=== PATIENT | female | born 1990 | race Caucasian/White ===

== ENCOUNTER → 2019-03-03 | Outpatient (CLI) | payer BC | LOC: COL.RAD 12:41 | DX: Q60.0 Renal agenesis, unilateral (principal); Q62.11 Congenital occlusion of ureteropelvic junction; Z90.5 Acquired absence of kidney | CPT/HCPCS: A9562; J1940 ==

== ENCOUNTER → 2019-04-02 | Outpatient (CLI) | payer BC | LOC: COL.RAD 10:22 | DX: Z13.0 Encounter for screening for diseases of the blood and blood-forming organs and certain disorders involving the immune mechanism (principal); N13.0 Hydronephrosis with ureteropelvic junction obstruction; Z87.440 Personal history of urinary (tract) infections | CPT/HCPCS: Q9967 ==

== ENCOUNTER 2019-06-20 10:12 | Inpatient (IN) | payer BC ==
[~2019-06-20] VITALS: Ht 165.1 cm; Wt 85.0 kg
[2020-01-20] MEDS ORDERED: EFFEXOR-XR150 MG PO (10:27)
[2020-01-20] MEDS ORDERED: TIROSINT100 MC1 PO (10:27)
[2020-03-02] VITALS (13 sets, daily range): BP systolic 111–122; BP diastolic 65–78; PULSE 93–116; TEMP 97.9–98.9
[2020-03-02] MEDS ORDERED: SYNTHROID0.1 MG/TAB PO (07:14)
--- NOTE | 2020-03-02 07:20 | NUR ---
TO RM 7 PER OWN WILL STEADY GAIT. ALERT ORIENTED X3, VERBALIZED UNDERSTANDING AND SIGNED CONSENT.
--- NOTE | 2020-03-02 07:28 | NUR ---
T0 RM AT 0634- CALL LIGHT IN REACH AT BEDSIDE
--- NOTE | 2020-03-02 11:20 | NUR ---
Patient up to room 343 from OR. Drowsy but arouses to voice, asking for or father. Lap sites x 6 with edges well approximated. Hodges to dependent drainage. Postop VSS. Postop fluids infusing per orders. Assessment complete. Denies pain or further needs at this time. Will continue to monitor.
--- NOTE | 2020-03-02 18:33 | NUR ---
Patient has done well throughout the day. Has been up ambulating in hernandez with stand by assist. Hodges maintined to dependent drainage with clear yellow urine. Tolerating diet without complications. Fluids continue infusing per orders. Denies further needs at this time. Will report off to drill operator pneumatic .
--- NOTE | 2020-03-02 19:56 | NUR ---
Pt is currently lying in bed. Pt had complaints of pain. I asked her if the previous pain medications helped. She stated that it helpledd little but she's still hurting. Pt was given pain medication at this tie. Pt is tolerating fluids well and was able to tolerate eating apple sauce without nausea. Pt has he call light within reach.
--- NOTE | 2020-03-02 22:35 | NUR ---
Pt is currently lying in bed. Pt has rested well throughout the night. Pt did have some complaints of pain earlier in the shift but after getting pain medication patient stated that her pain is much better. Pt has had a very good urine output. Pt urine is yellow and clear. Pt has been tolerating fluids well all night and has been able to eat without any nausea. Pt has her call light within reach. Pt was also able to ambulate tonight as well.
[2020-03-03 04:00] VITALS: BP 106/68; PULSE 89; TEMP 98.2
[2020-03-03 06:45] LABS: HEMATOCRIT 37.4 % (37.0-47.0)
[2020-03-03 07:00] LABS: CALCIUM 8.5 mg/dL (8.4-10.2); CREATININE, serum 0.58 (0.52-1.25)
[2020-03-03 07:59] VITALS: BP 128/68; PULSE 114; TEMP 98.3
--- NOTE | 2020-03-03 08:30 | NUR ---
Patient alert and oriented, answers questions appropriately. See assessment. Abdomen soft, non tender, non distended. Bowel sounds active x4 quads. +Flatus. Abdominal lap sites with edges well approximated, no redness or drainage noted. +Flatus. Hodges catheter in place and draining clear yellow urine, no blood or clots noted. ERAS protocol reviewed. No c/o at this time.
--- NOTE | 2020-03-03 08:54 | NUR ---
IVY Sarmiento here to see patient.
--- NOTE | 2020-03-03 09:21 | NUR ---
Hodges catheter removed at this time.
--- NOTE | 2020-03-03 09:35 | NUR ---
Topography Technician met with patient to discuss discharge planning. Patient lives in [place] with her , Maxim (ph#[phone]) and their four year old daughter, Claudia. Patient sees IVY Diaz for primary care and obtains medications from [facility] in [place] on . Patient states they will be a little short on money until Maxim gets paid on Sunday, but normally they have no difficulties affording medications. Patient does not use DME and reports independence with ADLS. Patient is interested in completing DPOA-HC form. MILLIE assisted patient in completing the form and patient chose to designate her , Maxim. Patient did not want to designate an alternate at this time. MILLIE and Tiffany Marble Polisher Hand provided witness signature. MILLIE provided original and copies to patient then placed a copy in patient's chart. Patient plans to return home at discharge with her providing transportation. Patient to discharge today and reports no concerns about returning home.
--- NOTE | 2020-03-03 11:14 | NUR ---
First visit from the air valve mechanic. No needs right now.
[2020-03-03 11:33] VITALS: BP 121/77; PULSE 64; TEMP 98.2
--- NOTE | 2020-03-03 13:59 | NUR ---
Discharge instructions reviewed with patient, verbalized understanding. Discharged via wheelchair to auto/home with spouse at 1355.
== END 2020-03-03 13:55 | disposition home or self-care (01) | DRG 661 ==
LOC: SDCO 07-17 14:00 → EDSTATUS 08-21 14:30 → SDCO 08-21 14:30 → INPTSU 03-02 06:26 → SURG 03-02 08:30
PROVIDERS: ADMIT Urology
PROC: 0TT14ZZ Resection of Left Kidney, Percutaneous Endoscopic Approach (ICD-10-PCS; principal; 2020-03-02 08:30)
DX: N26.1 Atrophy of kidney (terminal) (principal); E03.9 Hypothyroidism, unspecified; Z90.710 Acquired absence of both cervix and uterus; Z87.440 Personal history of urinary (tract) infections
CPT/HCPCS: A4314; A9284; C1726; C1758; C1769; J0690; J1100; J1885; J2250; J2370; J2405; J2704; J2795; J7050; J7120

== ENCOUNTER 2019-10-07 08:00 | Emergency (ER) | payer BC ==
[~2019-10-07] VITALS: Ht 165.1 cm; Wt 79.5 kg
[2019-10-07 08:06] VITALS: BP 110/72; TEMP 97.3
[2019-10-07 09:20] VITALS: PULSE 87
== END 2019-10-07 09:15 | disposition home or self-care (01) ==
LOC: COL.ER 08:00
DX: R33.9 Retention of urine, unspecified (principal); Z85.41 Personal history of malignant neoplasm of cervix uteri; Z90.710 Acquired absence of both cervix and uterus; Z98.890 Other specified postprocedural states
CPT/HCPCS: 31860; A4314

== ENCOUNTER 2020-01-20 09:15 | Day surgery (SDC) | payer BC ==
[~2020-01-20] VITALS: Ht 165.1 cm; Wt 83.1 kg
[2020-01-20] MEDS ORDERED: TIROSINT100 MC1 PO (10:27)
[2020-01-20] MEDS ORDERED: EFFEXOR100 MG PO (10:27)
[2020-01-20 10:28] VITALS: BP 121/76; PULSE 102; TEMP 97.7
[2020-01-20 13:02] VITALS: TEMP 99
[2020-01-20 13:20] VITALS: BP 121/77; PULSE 111
--- NOTE | 2020-01-20 13:20 | NUR ---
Patient returns to room 1 per cart from PACU accompanied by Nova MURO and is awake and alert. Temp 98.0. IV fluids infusing. Spouse in room. Siderails up x2 and call light in reach. Taking sips of apple juice. Denies pain or nausea.
[2020-01-20 13:35] VITALS: BP 111/66; PULSE 112
--- NOTE | 2020-01-20 13:35 | NUR ---
Eating toast and drinking juice. Assisted up to the bathroom. Voids and returns to room. Denies pain or nausea.
[2020-01-20 13:50] VITALS: BP 105/65; PULSE 116
--- NOTE | 2020-01-20 13:50 | NUR ---
Tolerated toast and juice. IV discontinued and site is free of redness. Room air sats 100%. Patient dresses self.
--- NOTE | 2020-01-20 14:00 | NUR ---
Given patient dismissal instructions and voices understanding of these.
--- NOTE | 2020-01-20 14:07 | NUR ---
Patient dismissed to home driven by spouse and taken to the front door per wheelchair and assisted into vehicle with dismissal instructions in hand.
== END 2020-01-20 14:07 | disposition home or self-care (01) ==
LOC: SDCO 09:15
DX: N39.0 Urinary tract infection, site not specified (principal); N13.1 Hydronephrosis with ureteral stricture, not elsewhere classified; N26.1 Atrophy of kidney (terminal); R33.9 Retention of urine, unspecified; F32.9 Major depressive disorder, single episode, unspecified; Z96.0 Presence of urogenital implants; Z79.899 Other long term (current) drug therapy; Z20.828 Contact with and (suspected) exposure to other viral communicable diseases
CPT/HCPCS: C1769; J0690; J1885; J2405; J2704; J3010; J7060; J7120; Q9967

== ENCOUNTER 2020-02-08 09:06 | Observation (INO) | payer BC ==
[~2020-02-08] VITALS: Ht 165.1 cm; Wt 83.4 kg
[~2020-02-08 09:06] MED LIST: EFFEXOR-XR150 MG PO; TIROSINT100 MC1 PO
[2020-02-08 10:18] VITALS: BP 123/74; PULSE 93; TEMP 98.2
[2020-02-08 10:57] LABS: BASO # 0.1 (0.0-0.2); BASO % 0.8 % (0.0-2.0); EOS # 0.2 (0.0-0.7); EOS % 2.8 % (0-4.0); GRAN # 3.7 (1.4-6.5); GRAN % 52.2 % (42.2-75.2); HEMATOCRIT 37.3 % (37.0-47.0); HEMOGLOBIN 11.8 g/dl (12.5-16.0); LYMPH # 2.6 (1.2-3.4); LYMPH % 35.9 % (20.0-51.0); MEAN CELL VOLUME 84 fl (80.0-100.0); MEAN CORPUSCULAR HEMOGLOBIN 27 pg (27.0-31.0); MEAN CORPUSCULAR HGB CONC 32 g/dl (33.0-37.0); MEAN PLATELET VOLUME 9.4 fl (7.4-10.4); MONO # 0.6 (0.1-0.6); PLATELET COUNT 292 K/mm3 (130-400); RED BLOOD COUNT 4.46 M/mm3 (4.10-5.30); REDCELL DISTRIBUTION WIDTH-CV 13.7 % (11.5-14.5)
--- NOTE | 2020-02-08 11:03 | NUR ---
Dr Perez here to see patient.
[2020-02-08 11:06] LABS: CALCIUM 8.8 mg/dL (8.4-10.2); CREATININE, serum 0.64 (0.52-1.25); POTASSIUM 3.9 mmol/L (3.4-5.0)
[2020-02-08 12:37] LABS: PH 7 (5-8); URINE APPEARANCE Cloudy; URINE BACTERIA Rare /hpf; URINE BILIRUBIN Negative (NEGATIVE); URINE BLOOD Negative (NEGATIVE); URINE COLOR Yellow; URINE GLUCOSE Negative (NEGATIVE); URINE KETONE Negative (NEGATIVE); URINE LEUKOCYTE ESTERASE 2+ (NEGATIVE); URINE NITRATE Negative (NEGATIVE); URINE PROTEIN(semi-quant) Negative (NEGATIVE); URINE RBC 0-2 /hpf; URINE WBC >50 /hpf
[2020-02-08 12:46] LABS: COLLECTION METHOD CLEAN CATCH
[2020-02-08 17:03] VITALS: BP 112/66; PULSE 89; TEMP 98.8
[2020-02-08 19:59] VITALS: BP 113/68; PULSE 77; TEMP 98.9
--- NOTE | 2020-02-08 22:30 | NUR ---
Pt assessment completed and charted, alert, and orientated. Meds provided as per MAR, as well as anti-emetic on pt request. Pt is settled on her bed, call light is on reach, bed alaram is on. No further needs at this time.
[2020-02-09 00:19] VITALS: BP 128/53; PULSE 96; TEMP 98.2
[2020-02-09 04:59] VITALS: BP 118/63; PULSE 75; TEMP 98.1
--- NOTE | 2020-02-09 05:37 | NUR ---
Pt had an uneventful nighy. Pt slept through out the night. No further needs at this time.
[2020-02-09 07:13] VITALS: BP 114/65; PULSE 70; TEMP 97.9
--- NOTE | 2020-02-09 09:10 | NUR ---
Patient is discharging home. Discharge instructions discussed with patient. No questions verbalized. She already has a follow up appointment scheduled. Dr Perez verbalized the office will call in antibiotics for patient. INT discontinued. Rocephen given before discharge. All belongings packed up and sent with patient. Copies of discharge instructions sent with patient. Education about nephrectomy sent with patient as she will be having the surgery soon. Patient walked out with this nurse.
== END 2020-02-09 09:15 | disposition home or self-care (01) ==
LOC: SURG 09:06
PROVIDERS: ADMIT Urology
DX: N12 Tubulo-interstitial nephritis, not specified as acute or chronic (principal); N39.0 Urinary tract infection, site not specified; N13.30 Unspecified hydronephrosis; N26.1 Atrophy of kidney (terminal); E03.9 Hypothyroidism, unspecified; Z87.440 Personal history of urinary (tract) infections; Z96.0 Presence of urogenital implants; Z90.710 Acquired absence of both cervix and uterus; Z79.899 Other long term (current) drug therapy; Z88.8 Allergy status to other drugs, medicaments and biological substances
CPT/HCPCS: G0378; J0696; J2405

== ENCOUNTER → 2020-08-02 | Outpatient (CLI) | payer BC ==
[~2020-08-02] MED LIST changes: +SYNTHROID0.1 MG/TAB PO
== END ==
LOC: COL.RAD 11:37
DX: N28.89 Other specified disorders of kidney and ureter (principal); Z90.5 Acquired absence of kidney; N13.0 Hydronephrosis with ureteropelvic junction obstruction
CPT/HCPCS: A9562; J1940

== ENCOUNTER 2020-11-17 15:47 | Emergency (ER) | payer BC ==
[~2020-11-17] VITALS: Ht 152.4 cm; Wt 86.4 kg
[2020-11-17 15:57] VITALS: TEMP 98.5
[2020-11-17 16:15] LABS: COLLECTION METHOD CLEAN CATCH
[2020-11-17 16:24] LABS: MUCOUS Present /lpf; PH 6 (5-8); URINE APPEARANCE Cloudy; URINE BACTERIA Rare /hpf; URINE BILIRUBIN Negative (NEGATIVE); URINE BLOOD Negative (NEGATIVE); URINE COLOR Yellow; URINE GLUCOSE Negative (NEGATIVE); URINE KETONE Negative (NEGATIVE); URINE LEUKOCYTE ESTERASE 3+ (NEGATIVE); URINE NITRATE Positive (NEGATIVE); URINE PROTEIN(semi-quant) 1+ (NEGATIVE); URINE UROBILINOGEN Negative (NEGATIVE)
[2020-11-17 18:50] LABS: BASO # 0.1 (0.0-0.2); BASO % 0.7 % (0.0-2.0); EOS # 0.2 (0.0-0.7); EOS % 2.3 % (0-4.0); GRAN # 4.4 (1.4-6.5); GRAN % 51.3 % (42.2-75.2); HEMOGLOBIN 13.2 g/dl (12.5-16.0); LYMPH # 3.3 (1.2-3.4); LYMPH % 38.8 % (20.0-51.0); MEAN CELL VOLUME 83 fl (80.0-100.0); MEAN CORPUSCULAR HEMOGLOBIN 26 pg (27.0-31.0); MEAN CORPUSCULAR HGB CONC 31 g/dl (33.0-37.0); MEAN PLATELET VOLUME 9.2 fl (7.4-10.4); MONO # 0.6 (0.1-0.6); MONO % 6.4 % (1.7-9.3); PLATELET COUNT 355 K/mm3 (130-400); RED BLOOD COUNT 5.09 M/mm3 (4.10-5.30)
[2020-11-17 19:08] LABS: ALBUMIN 4.1 gm/dL (3.5-5.0); BILIRUBIN,TOTAL 0.6 mg/dL (0.0-1.0); CALCIUM 9.3 mg/dL (8.4-10.2); CREATININE, serum 0.7 (0.52-1.25); POTASSIUM 3.7 mmol/L (3.4-5.0)
[2020-11-17 20:53] VITALS: BP 126/67; PULSE 88
== END 2020-11-17 20:53 | disposition home or self-care (01) ==
LOC: COL.ER 15:47
PROVIDERS: Nurse Practitioner; Physician Assistant
DX: N39.0 Urinary tract infection, site not specified (principal); Z90.710 Acquired absence of both cervix and uterus; Z87.448 Personal history of other diseases of urinary system
CPT/HCPCS: J0696; J2270; J2405; J7030; Q9967

== ENCOUNTER 2021-10-28 15:24 | Inpatient (IN) | payer BC ==
[~2021-10-28] VITALS: Ht 152.4 cm; Wt 76.6 kg
[2021-10-28 16:22] LABS: COLLECTION METHOD CLEAN CATCH
[2021-10-28 16:33] LABS: HEMATOCRIT 37.8 % (37.0-47.0); HEMOGLOBIN 12.5 g/dl (12.5-16.0); MEAN CELL VOLUME 82 fl (80.0-100.0); MEAN CORPUSCULAR HEMOGLOBIN 27 pg (27-31); MEAN CORPUSCULAR HGB CONC 33 g/dl (33.0-37.0); MEAN PLATELET VOLUME 9.3 fl (7.4-10.4); PLATELET COUNT 209 K/mm3 (130-400); RED BLOOD COUNT 4.59 M/mm3 (4.10-5.30); REDCELL DISTRIBUTION WIDTH-CV 12.9 % (11.5-14.5)
[2021-10-28 16:50] LABS: MUCOUS Present (NOT PRESENT); PH 5 (5-8); SQUAMOUS EPITHELIAL 20-50 /hpf (0-10); URINE APPEARANCE Cloudy (CLEAR/HAZY); URINE BACTERIA Rare /hpf (NONE SEEN); URINE BILIRUBIN Negative (NEGATIVE); URINE BLOOD Negative (NEGATIVE); URINE COLOR Amber (YELLOW); URINE GLUCOSE Negative (NEGATIVE); URINE KETONE 2+ (NEGATIVE); URINE LEUKOCYTE ESTERASE Negative (NEGATIVE); URINE NITRATE Negative (NEGATIVE); URINE PROTEIN(semi-quant) 1+ (NEGATIVE); URINE UROBILINOGEN >=4.0 (NEGATIVE)
[2021-10-28 17:02] LABS: ALBUMIN 3.5 gm/dL (3.5-5.0); BILIRUBIN,TOTAL 1.3 mg/dL (0.2-1.2); CREATININE, serum 0.71 mg/dL (0.57-1.11); POTASSIUM 3.3 mmol/L (3.5-4.5); TOTAL PROTEIN 6.9 gm/dL (6.2-8.1)
[2021-10-28 18:53] LABS: BAND 13 % (0-10); LYMPHOCYTE 16 % (20.0-51.0); METAMYELOCYTE 1 % (0-0); NEUTROPHILS 67 % (42.0-75.2); PLATELET ESTIMATE NORMAL (NORMAL)
[2021-10-28 18:54] LABS: HYPOCHROMIA 1+
[2021-10-28 19:40] LABS: COLLECTION METHOD CLEAN CATCH
[2021-10-28 19:56] LABS: MUCOUS Present (NOT PRESENT); PH 6 (5-8); URINE APPEARANCE Hazy (CLEAR/HAZY); URINE BACTERIA None Seen /hpf (NONE SEEN); URINE BILIRUBIN Negative (NEGATIVE); URINE BLOOD Negative (NEGATIVE); URINE COLOR Yellow (YELLOW); URINE GLUCOSE Negative (NEGATIVE); URINE KETONE 2+ (NEGATIVE); URINE LEUKOCYTE ESTERASE Negative (NEGATIVE); URINE NITRATE Negative (NEGATIVE); URINE PROTEIN(semi-quant) 1+ (NEGATIVE); URINE UROBILINOGEN >=4.0 (NEGATIVE)
[2021-10-28] MEDS ORDERED: VIIBRYD10 MG PO (20:41)
[2021-10-28] MEDS ORDERED: ADIPEX-P37.5 MG PO (20:41)
[2021-10-28 22:41] VITALS: BP 127/86; PULSE 105; TEMP 97.5
--- NOTE | 2021-10-28 23:31 | NUR ---
Admitted to medical floor from ER- right flank pain, nausea, fever, UTI,, states right flank pain3/10 at this time- was just medicated in ER, denies nausea at this time, VENETIE IRA- states left her hearing aides and dentures at home. INt to right AC- pt states very painful and wants it removed-- will start another line. Up to bathroom- steady on feet, voiding cloudy yellow urine.
[2021-10-29] VITALS (8 sets, daily range): BP systolic 105–132; BP diastolic 73–89; PULSE 83–129; TEMP 97.5–101.8
--- NOTE | 2021-10-29 05:10 | NUR ---
Has not had much sleep, Zofran given x1 tonight-- Has had Dilaudid IV x2 for right sided and pain, has voided 550cc dk jodee urine. Did not tolerate the IV potassium per protocol-- Rosy SOARES called and she changed order to IV fluids of NS with 20KCL at 125cc/hr.
[2021-10-29 06:36] LABS: HEMOGLOBIN 10.9 g/dl (12.5-16.0); MEAN CELL VOLUME 85 fl (80.0-100.0); MEAN CORPUSCULAR HEMOGLOBIN 27 pg (27-31); MEAN CORPUSCULAR HGB CONC 32 g/dl (33.0-37.0); MEAN PLATELET VOLUME 9.5 fl (7.4-10.4); PLATELET COUNT 162 K/mm3 (130-400); RED BLOOD COUNT 4.01 M/mm3 (4.10-5.30)
[2021-10-29 06:42] LABS: HEMATOCRIT 33.9 % (37.0-47.0)
[2021-10-29 06:55] LABS: CALCIUM 8.4 mg/dL (8.4-10.2); CREATININE, serum 0.58 mg/dL (0.57-1.11); POTASSIUM 3.4 mmol/L (3.5-4.5)
[2021-10-29 07:29] LABS: BAND 3 % (0-10); LYMPHOCYTE 7 % (20.0-51.0); NEUTROPHILS 78 % (42.0-75.2); PLATELET ESTIMATE NORMAL (NORMAL)
--- NOTE | 2021-10-29 07:30 | NUR ---
Patient c/o pain to right flank/head-rating pain 9/10-described as sharp throbbing. Dilaudid given per dr order. Will reassess.
--- NOTE | 2021-10-29 08:11 | NUR ---
Patient still rating pain 9/10 post dilaudid. Spoke with IVY Winchester and new orders received.
--- NOTE | 2021-10-29 10:15 | NUR ---
PCT reports patient is c/o pain. Patient states she is having right flank and head pain-described as sharp throbbing-rating pain 8/10 on pain scale. Morphine given per dr order. Will reassess
--- NOTE | 2021-10-29 10:23 | NUR ---
SW met with patient to complete intake. Patient provides she lives in [facility] [place] with spouse Maxim Yen [phone]. Patient provides that she does not utilize DME and is independent with ADL's. PCP is Dr. Alexandre and pharmacy is [facility]. Documenation states that spouse is DPOA/HC. Patient plans to return to her home upon DC. SW will continue to follow. DC plan: home
--- NOTE | 2021-10-29 11:26 | NUR ---
Contacted [facility] ER about CT scan results. Will fax to medical floor.
--- NOTE | 2021-10-29 12:37 | NUR ---
Airway Controller stopped by room. Patient requested to rest.
--- NOTE | 2021-10-29 13:29 | NUR ---
IVY Winchester notified of elevated temp with tylenol being given an hour ago. New orders received and initiated.
--- NOTE | 2021-10-29 18:14 | NUR ---
Patient slept most of shift-receiving morphine every two hours for pain. IV fluids continue to infuse @125ml/hr. Did have two episodes of fevers up to 101.8-motrin/tylenol for this. Showered today. Received three doses of potassium per protocol. Also received 500ml bolus. Voiding without difficulty. Currently resting with eyes closed.
--- NOTE | 2021-10-29 19:30 | NUR ---
Initial shift assessment done- states had headache 5/,, and abdominal right flank pain /--will give Morphine IV and Tylenol as ordered, Tele on, IV fludis of NS with 20KCL at 150cc/hr, pt states did eat some supper tonight- states overall is feeling just a little better.
[2021-10-30 03:37] VITALS: BP 121/87; PULSE 88; TEMP 98.1
--- NOTE | 2021-10-30 06:13 | NUR ---
Did get some sleep last night-- VSS, afebrile all night,, did receive Morphine IV x3 during the shift for flank pain , Zofran x1 for nausea and Tylenol/Motrin each once for ALFARO and neck ache. Is tolerating po
[2021-10-30 07:03] LABS: BASO % 0.5 % (0.0-2.0); EOS % 0.5 % (0.0-4.0); GRAN # 3.9 K/mm3 (1.4-6.5); GRAN % 63.9 % (42.2-75.2); HEMOGLOBIN 10.4 g/dl (12.5-16.0); LYMPH # 1.1 K/mm3 (1.2-3.4); LYMPH % 18.6 % (20.0-51.0); MEAN CELL VOLUME 84 fl (80.0-100.0); MEAN CORPUSCULAR HEMOGLOBIN 27 pg (27-31); MEAN CORPUSCULAR HGB CONC 32 g/dl (33.0-37.0); MEAN PLATELET VOLUME 9.9 fl (7.4-10.4); MONO % 15.8 % (1.7-9.3); PLATELET COUNT 156 K/mm3 (130-400); RED BLOOD COUNT 3.86 M/mm3 (4.10-5.30); REDCELL DISTRIBUTION WIDTH-CV 13.3 % (11.5-14.5)
[2021-10-30 07:13] LABS: HEMATOCRIT 32.5 % (37.0-47.0)
[2021-10-30 07:14] LABS: CALCIUM 8.5 mg/dL (8.4-10.2); CREATININE, serum 0.55 mg/dL (0.57-1.11); POTASSIUM 4.1 mmol/L (3.5-4.5)
[2021-10-30 07:16] VITALS: BP 118/81; PULSE 78; TEMP 98
[2021-10-30 07:23] LABS: MAGNESIUM 1.7 mg/dL (1.6-2.6)
[2021-10-30 07:51] LABS: C-REACTIVE PROTEIN 19.32 mg/dL (0.00-0.50)
--- NOTE | 2021-10-30 08:00 | NUR ---
Assessment complete. A&Ox4. Denies pain/nausea/shortness of breath. VS remain stable. Patient states she feels much better compared to yesterday. IV to left forearm with NS with 20KCL@100mls/hr infusing without difficulty. Plan of care discussed for this shift to include meds/pain control/calling for questions/concerns. Verbalizes understanding. Call light in reach. Will monitor.
[2021-10-30 08:57] LABS: TSH w REFLEX 2.286 uIU/mL (0.350-4.940)
[2021-10-30 11:18] VITALS: BP 129/93; PULSE 99; TEMP 97.9
--- NOTE | 2021-10-30 11:45 | NUR ---
Noted to have a new STAT Vanc order. Slow Zosyn currently infusing with approx one hour left. Will hang vanc once Zosyn completes.
--- NOTE | 2021-10-30 11:59 | NUR ---
Vancomycin Initial Dosing Pharmacy Note Ordering provider: MD KIAH Indication/duration: SEPSIS, BACTEREMIA Relevant comorbidities: LEFT NEPHRECTOMY LABS: WBC 6.1, TMAX 101.8, SCR 0.55, CRCL >100 Recommendation: VANCOMYCIN 15 MG/KG Loading dose: 1.5 grams Maintenance dose: 1 gram every 12 hours Trough goal: 15-20 ug/mL. TROUGH 7/5 @ 1130
[2021-10-30 15:21] VITALS: BP 133/94; PULSE 95; TEMP 98.9
--- NOTE | 2021-10-30 15:51 | NUR ---
Called with C/o pain to right flank described as constant throbbing-rating pain 7/10 on pain scale. Morphine given per dr order. Will reassess
--- NOTE | 2021-10-30 18:33 | NUR ---
Patient had an uneventful day. Received morphine x2 for pain. Denied nausea/shortness of breath. Afebrile. IV fluids infusing @100ml/hr. Tolerating diet. Voiding without difficulty. Denies current needs. Call light in reach. Will monitor.
[2021-10-30 19:01] VITALS: BP 129/84; PULSE 109; TEMP 98.7
--- NOTE | 2021-10-30 20:30 | NUR ---
Initial shift assessment done- was just given some Tylenol for headache--states it is somewhat better 06/09,, wants to take a shower tonight- supplies gathered for her,, IV fluids of NS with 20KCL at 100cc/hr. States abd/flank pain is "OK " right now.
[2021-10-30 23:34] VITALS: BP 121/79; PULSE 81; TEMP 98.3
[2021-10-31 03:14] VITALS: BP 131/85; PULSE 72; TEMP 97.9
--- NOTE | 2021-10-31 04:48 | NUR ---
Quiet night- Morphine for right flank pain given just once this shift-- did get Motrin x1 for a headache. Voiding large amounts clear yellow urine.
[2021-10-31 06:30] LABS: BASO # 0.1 K/mm3 (0.0-0.2); BASO % 0.8 % (0.0-2.0); EOS # 0.1 K/mm3 (0.0-0.7); GRAN # 3.2 K/mm3 (1.4-6.5); GRAN % 53.4 % (42.2-75.2); MEAN CELL VOLUME 86 fl (80.0-100.0); MEAN CORPUSCULAR HEMOGLOBIN 27 pg (27-31); MEAN CORPUSCULAR HGB CONC 32 g/dl (33.0-37.0); MEAN PLATELET VOLUME 9.8 fl (7.4-10.4); MONO # 0.7 K/mm3 (0.1-0.6); MONO % 11.5 % (1.7-9.3); PLATELET COUNT 164 K/mm3 (130-400); RED BLOOD COUNT 3.66 M/mm3 (4.10-5.30); REDCELL DISTRIBUTION WIDTH-CV 13.4 % (11.5-14.5)
[2021-10-31 06:32] LABS: CALCIUM 8.7 mg/dL (8.4-10.2); CREATININE, serum 0.56 mg/dL (0.57-1.11); MAGNESIUM 1.7 mg/dL (1.6-2.6); POTASSIUM 3.6 mmol/L (3.5-4.5)
[2021-10-31 06:41] LABS: HEMATOCRIT 31.4 % (37.0-47.0)
[2021-10-31 07:25] VITALS: BP 115/78; PULSE 85; TEMP 98.2
--- NOTE | 2021-10-31 10:00 | NUR ---
Pt doing okay this morning with no complaints. She did have and eat breakfast. Denies any needs or questions, will continue to monitor
[2021-10-31 11:25] VITALS: BP 125/83; PULSE 72; TEMP 98.2
--- NOTE | 2021-10-31 12:05 | NUR ---
Pt getting up independently in her room. She did have some complaints of pain. She did originally ask for morphine, but stated that we would have to try some oral pain medication first. Pt rating pain 3/10 at this time. PRN mortrin given. Pt was hoping to get to go home. Informed her Dr Aceves, the hospitalist would come around and discuss with her. No other needs, call light within reach
--- NOTE | 2021-10-31 13:33 | NUR ---
Pt is alert and oriented, but she does ask me the same questions multiple times. She is wanting to go home today. I have explained to her multiple times that the hospitalist is planning on her staying for antibiotics, but that when he rounds, she can discuss with him. Informed her I was unsure what time he would be in, but that he was rounding on pts. I have given this information 3-4 times since 1000.
[2021-10-31] MEDS ORDERED: BACTRIM DS 8001 TAB PO (15:38)
--- NOTE | 2021-10-31 16:33 | NUR ---
Pt did receive discharge orders. Discussed with Dr Mcneil. Reviewed discharge instructions with pt to include urology office calling her to make a follow up appointment and new antibiotic as well as lab work. Notified Dr Valencia of pt discharging. INT removed from left forearm, pt escorted out
== END 2021-10-31 16:34 | disposition home or self-care (01) | DRG 872 ==
LOC: COL.ER 15:24 → MEDICAL 18:36
PROVIDERS: Nurse Practitioner Family; Personal Emergency Response Attendant; ADMIT Internal Medicine
DX: A41.1 Sepsis due to other specified staphylococcus (principal); N13.6 Pyonephrosis; N12 Tubulo-interstitial nephritis, not specified as acute or chronic; Q60.0 Renal agenesis, unilateral; E03.9 Hypothyroidism, unspecified; F32.A Depression, unspecified; F41.9 Anxiety disorder, unspecified; R73.9 Hyperglycemia, unspecified; E87.6 Hypokalemia; Z87.891 Personal history of nicotine dependence; Z90.5 Acquired absence of kidney; Z90.710 Acquired absence of both cervix and uterus; Z88.8 Allergy status to other drugs, medicaments and biological substances; Z72.89 Other problems related to lifestyle; Z23 Encounter for immunization
CPT/HCPCS: J1170; J1650; J1956; J2270; J2405; J2543; J3370; J3480; J7030; J7040; J7050